=== PATIENT | female | born 1985 | race Caucasian/White ===

== ENCOUNTER 2017-02-06 15:10 | Emergency (ER) | payer OTHER ==
[~2017-02-06] VITALS: Ht 172.7 cm; Wt 89.4 kg
[~2017-02-06 15:10] MED LIST: ASPEC325 PO; PRENTAB26 PO
[2017-02-06 15:14] VITALS: TEMP 36.9; Ht 172.7 cm; Wt 89.4 kg
[2017-02-06 16:15] LABS: BASO % 0.7 %; BASO ABS # 0.05 K/uL (0-0.2); COMPLETE YES; EOS % 3.3 %; HEMATOCRIT 42.2 % (37-47); IG% 0.3 %; LYMPH % 27.5 %; LYMPH ABS # 2.08 K/uL (1.2-3.4); MEAN CELL VOLUME 87.7 fL (80-100); MEAN CORPUSCULAR HEMOGLOBIN 29.7 pg (25-34); MEAN CORPUSCULAR HGB CONC 33.9 g/dl (32-36); MEAN PLATELET VOLUME 10.4 fL (7.4-10.4); NEUT % 61.2 %; PLATELET COUNT 271 K/uL (130-400); RED BLOOD COUNT 4.81 M/uL (4.2-5.4); WHITE BLOOD COUNT 7.56 K/uL (4.8-10.8)
[2017-02-06] MEDS ORDERED: FLUT0.15 (16:17)
[2017-02-06] MEDS ORDERED: CETI10TA84 PO (16:17)
--- NOTE | 2017-02-06 16:23 | EMERGENCY ROOM VISIT NOTE ---
History First contact with patient: 15:26 Chief Complaint: FLANK PAIN Stated Complaint: SIDE PAIN, POSS. KIDNEYS History of Present Illness The patient is a 31 year old female who presents to the Emergency Room with complaints of Left sided flank pain x 4 days. Pain is constant 6/10 intensity. She took Azo overnight. She also reports as of last night, dysuria, w/o hematuria. This morning , she went to Acute care in [place], and has a UA and UPT which were normal per patient. She informed to go to hospital if pain did not subside. She also reports subjective fever, chills. She denies N/V or change in stool. Patient did have a UTI 4 mos ago but does report recurrent UTI. She denies hx of kidney stones or pyelonephritis. Patient reports past medical hx of ectopic . Review of Systems Pt denies headache, change in vision, chest pain, shortness of breath, nausea, vomiting, diarrhea, and melena. Past Medical/Surgical History Medical Problems: (1) Ectopic (2) No Known Active Medical Problems Social History Smoking Status: Never Smoker Current/Historical Medications Scheduled Cetirizine (Zyrtec), 10 MG PO DAILY Scheduled PRN Fluticasone Propionate (Nasal) (Flonase Allergy Relief), 1 SPRAY NA DAILY PRN for PRN Allergies Coded Allergies: Nifedipine (Unverified Allergy, Unknown, EDEMA/SWELLING/REDNESS, 02/06/17) Sulfa Antibiotics (Unverified Allergy, Unknown, ITCHY, 02/06/17) Phenyltoloxamine (Unverified Adverse Reaction, Mild, HIVES CHILD, ) Physical Exam Vital Signs Date Time Temp Pulse Resp B/P (MAP) Pulse Ox O2 Delivery O2 Flow Rate FiO2 02/06/17 16:44 67 16 115/74 98 02/06/17 15:14 36.9 76 20 116/69 97 Room Air Physical Exam GENERAL: alert, well appearing, well nourished, no distress, non-toxic EYE EXAM: normal conjunctiva, PERRL and EOM's grossly intact NECK: supple, no nuchal rigidity, no adenopathy, non-tender LUNGS: Clear to auscultation. Normal chest wall mechanics HEART: no murmurs, S1 normal and S2 normal ABDOMEN: abdomen soft, mild Left sided abdominal pain, normo-active bowel sounds, no masses, no rebound or guarding. BACK: Back is symmetrical on inspection and there is no deformity, no midline tenderness, + CVA tenderness Left sided UPPER EXTREMITIES: upper extremities are grossly normal. LOWER EXTREMITIES: No pitting edema. NEURO EXAM: Normal sensorium, cranial nerves II-XII gross intact, normal speech , no gross weakness of arms, no gross weakness of legs. Medical Decision & Procedures Laboratory Results 02/06/17 15:28 Red Blood Count 4.81, Mean Corpuscular Volume 87.7, Mean Corpuscular Hemoglobin 29.7, Mean Corpuscular Hemoglobin Concent 33.9, Mean Platelet Volume 10.4, Neutrophils (%) (Auto) 61.2, Lymphocytes (%) (Auto) 27.5, Monocytes (%) (Auto) 7.0, Eosinophils (%) (Auto) 3.3, Basophils (%) (Auto) 0.7, Neutrophils # (Auto) 4.63, Lymphocytes # (Auto) 2.08, Monocytes # (Auto) 0.53, Eosinophils # (Auto) 0.25, Basophils # (Auto) 0.05 02/06/17 15:28 Test 02/06/17 15:28 02/06/17 16:40 White Blood Count 7.56 K/uL (4.8-10.8) Red Blood Count 4.81 M/uL (4.2-5.4) Hemoglobin 14.3 g/dL (12.0-16.0) Hematocrit 42.2 % (37-47) Mean Corpuscular Volume 87.7 fL (80-100) Mean Corpuscular Hemoglobin 29.7 pg (25-34) Mean Corpuscular Hemoglobin Concent 33.9 g/dl (32-36) Platelet Count 271 K/uL (130-400) Mean Platelet Volume 10.4 fL (7.4-10.4) Neutrophils (%) (Auto) 61.2 % Lymphocytes (%) (Auto) 27.5 % Monocytes (%) (Auto) 7.0 % Eosinophils (%) (Auto) 3.3 % Basophils (%) (Auto) 0.7 % Neutrophils # (Auto) 4.63 K/uL (1.4-6.5) Lymphocytes # (Auto) 2.08 K/uL (1.2-3.4) Monocytes # (Auto) 0.53 K/uL (0.11-0.59) Eosinophils # (Auto) 0.25 K/uL (0-0.5) Basophils # (Auto) 0.05 K/uL (0-0.2) RDW Standard Deviation 42.9 fL (36.4-46.3) RDW Coefficient of Variation 13.2 % (11.5-14.5) Immature Granulocyte % (Auto) 0.3 % Immature Granulocyte # (Auto) 0.02 K/uL (0.00-0.02) Anion Gap 5.0 mmol/L (3-11) Est Creatinine Clear Calc Drug Dose 88.3 ml/min Estimated GFR () 78.6 Estimated GFR (Non- 67.8 BUN/Creatinine Ratio 13.5 (10-20) Calcium Level 8.9 mg/dl (8.5-10.1) Urine Color YELLOW Urine Appearance CLEAR (CLEAR) Urine pH 5.5 (4.5-7.5) Urine Specific [place] 1.026 (1.000-1.030) Urine Protein NEG (NEG) Urine Glucose (UA) NEG (NEG) Urine Ketones NEG (NEG) Urine Occult Blood NEG (NEG) Urine Nitrite NEG (NEG) Urine Bilirubin NEG (NEG) Urine Urobilinogen NEG (NEG) Urine Leukocyte Esterase NEG (NEG) Urine WBC (Auto) 1-5 /hpf (0-5) Urine RBC (Auto) 0-4 /hpf (0-4) Urine Hyaline Casts (Auto) 1-5 /lpf (0-5) Urine Epithelial Cells (Auto) 20-30 /lpf (0-5) Urine Bacteria (Auto) NEG (NEG) Urine Test NEG (NEG) Medical Decision 31 yo F p/w L-sided flank/back pain Differential diagnoses includes but is not limited to , muscle strain, facture, cauda equina, mass, and disc herniation Kidney stone . UA unremarkable CBC unremarkable UPT negative CT Abdomen 1. No urinary calculi or hydronephrosis. 2. No acute process within the abdomen or pelvis on unenhanced exam. Based on lab findings, Patient does not have UTI or pyelonephritis or evidence of Kidney stone on CT. Pain likely due to MSK pain which would be consistent with her positional worsening of pain. Results of labs and imaging were discussed with patient and patient understood, She agreed to follow up with Sina for primary care visit within 1 week for ongoing care following discharge. Impression Primary Impression: Left flank pain Departure Information Dispostion Home / Self-Care Condition GOOD Referrals No Doctor, Assigned (PCP) Patient Instructions My [facility] Resident Tracking Resident Involvement: Resident Care Provided Care Provided: Adult ED
--- NOTE | 2017-02-06 16:25 | DIAGNOSTIC IMAGING REPORT ---
CT OF THE ABDOMEN AND PELVIS WITHOUT CONTRAST, STONE PROTOCOL CLINICAL HISTORY: Left flank pain. COMPARISON STUDY: None. TECHNIQUE: Helical axial images of the abdomen and pelvis were obtained without IV or oral contrast according to renal stone protocol. FINDINGS: There are no renal, ureteral or bladder calculi. Pelvic calcifications reflect phleboliths. There is no hydronephrosis. Evaluation of the remainder of the abdomen and pelvis is suboptimal on this unenhanced exam. Unenhanced images of the liver, spleen, adrenal glands and pancreas are normal. There is no evidence for a bowel obstruction. The appendix is normal. There is no free fluid. There is no lymphadenopathy. A tampon is in place. The ovaries are not enlarged. Skeletal structures are unremarkable. IMPRESSION: 1. No urinary calculi or hydronephrosis. 2. No acute process within the abdomen or pelvis on unenhanced exam. Electronically signed by: Julio Curran M.D. 02/06/2017 4:24 PM Dictated Date/Time: 02/06/2017 4:17 PM
[2017-02-06 16:32] LABS: BUN/CREATININE RATIO 13.5 (10-20); CALCIUM 8.9 mg/dl (8.5-10.1); CREATININE 1.1 mg/dl (0.60-1.20); POTASSIUM 3.7 mmol/L (3.5-5.1)
--- NOTE | 2017-02-06 16:38 | EMERGENCY ROOM VISIT NOTE ---
History Report prepared by Juan: Ludwin Virk Under the Supervision of: Dr. Braxton Paz M.D. First contact with patient: 15:26 Chief Complaint: FLANK PAIN Stated Complaint: SIDE PAIN, POSS. KIDNEYS History of Present Illness The patient is a 31 year old female who presents to the Emergency Room with complaints of constant left flank pain beginning 4 days ago. Her pain is worsened with movement and is improved with laying down. She rates her pain as a 6/10 in severity. The patient also complains of burning with urination, subjective fever, and chills. She denies any vaginal complaints, coughing, nausea, vomiting, or diarrhea. She has a history of UTIs and states that her most recent one was about four months ago. The patient has a history of similar pain but has never been seen by a physician before for her symptoms. She states that her symptoms usually last for 2 months before resolving spontaneously. She has a history of an ectopic . The patient denies any recent falls, trauma, injury, or straining. Source of History: patient Onset: four days ago Position: other (left flank) Symptom Intensity: 6/10 Timing: constant Modifying Factors (Worsening): movement Modifying Factors (Relieving): other (laying down) Associated Symptoms: + fevers (subjective), + chills, + urinary symptoms ( burning), No cough, No nausea, No vomiting, No diarrhea Note: The patient denies any vaginal complaints. Review of Systems See HPI for pertinent positives & negatives. A total of 10 systems reviewed and were otherwise negative. Past Medical & Surgical Medical Problems: (1) Ectopic (2) No Known Active Medical Problems Family History No pertinent family history stated. Social History Smoking Status: Never Smoker Current/Historical Medications Scheduled Cetirizine (Zyrtec), 10 MG PO DAILY Scheduled PRN Fluticasone Propionate (Nasal) (Flonase Allergy Relief), 1 SPRAY NA DAILY PRN for PRN Allergies Coded Allergies: Nifedipine (Unverified Allergy, Unknown, EDEMA/SWELLING/REDNESS, 02/06/17) Sulfa Antibiotics (Unverified Allergy, Unknown, ITCHY, 02/06/17) Phenyltoloxamine (Unverified Adverse Reaction, Mild, HIVES CHILD, ) Physical Exam Vital Signs Date Time Temp Pulse Resp B/P (MAP) Pulse Ox O2 Delivery O2 Flow Rate FiO2 7/17/17 16:44 67 16 115/74 98 02/06/17 15:14 36.9 76 20 116/69 97 Room Air Physical Exam GENERAL: Patient is in no acute distress. HEENT: No acute trauma, normocephalic atraumatic, mucous membranes moist, no nasal congestion, no scleral icterus. NECK: No stridor, no adenopathy, no meningismus, trachea is midline. LUNGS: Clear to auscultation bilaterally, no wheeze, no rhonchi, breath sounds equal. HEART: Without murmurs gallops or rubs, regular rate and rhythm. ABDOMEN: Soft, mildly tender along the entire left side, bowel sounds positive, no hernias, no peritonitis. BACK: Mild left flank discomfort with percussion. Tender over the left lumbar musculature with palpation. Pain worsens with movement. EXTREMITIES: No cyanosis or edema, full range of motion of all the joints without pain or difficulty, no signs for acute trauma. NEUROLOGIC: Oriented x 3, no acute motor or sensory deficits, no focal weakness. SKIN: No rash, no jaundice, no diaphoresis. Medical Decision & Procedures ER Provider Diagnostic Interpretation: CT results as stated below per my review and radiologist interpretation: CT OF THE ABDOMEN AND PELVIS WITHOUT CONTRAST, STONE PROTOCOL FINDINGS: There are no renal, ureteral or bladder calculi. Pelvic calcifications reflect phleboliths. There is no hydronephrosis. Evaluation of the remainder of the abdomen and pelvis is suboptimal on this unenhanced exam. Unenhanced images of the liver, spleen, adrenal glands and pancreas are normal. There is no evidence for a bowel obstruction. The appendix is normal. There is no free fluid. There is no lymphadenopathy. A tampon is in place. The ovaries are not enlarged. Skeletal structures are unremarkable. IMPRESSION: 1. No urinary calculi or hydronephrosis. 2. No acute process within the abdomen or pelvis on unenhanced exam. Electronically signed by: Julio Curran M.D. Laboratory Results 02/06/17 15:28 Red Blood Count 4.81, Mean Corpuscular Volume 87.7, Mean Corpuscular Hemoglobin 29.7, Mean Corpuscular Hemoglobin Concent 33.9, Mean Platelet Volume 10.4, Neutrophils (%) (Auto) 61.2, Lymphocytes (%) (Auto) 27.5, Monocytes (%) (Auto) 7.0, Eosinophils (%) (Auto) 3.3, Basophils (%) (Auto) 0.7, Neutrophils # (Auto) 4.63, Lymphocytes # (Auto) 2.08, Monocytes # (Auto) 0.53, Eosinophils # (Auto) 0.25, Basophils # (Auto) 0.05 02/06/17 15:28 Test 02/06/17 15:28 02/06/17 16:40 White Blood Count 7.56 K/uL (4.8-10.8) Red Blood Count 4.81 M/uL (4.2-5.4) Hemoglobin 14.3 g/dL (12.0-16.0) Hematocrit 42.2 % (37-47) Mean Corpuscular Volume 87.7 fL (80-100) Mean Corpuscular Hemoglobin 29.7 pg (25-34) Mean Corpuscular Hemoglobin Concent 33.9 g/dl (32-36) Platelet Count 271 K/uL (130-400) Mean Platelet Volume 10.4 fL (7.4-10.4) Neutrophils (%) (Auto) 61.2 % Lymphocytes (%) (Auto) 27.5 % Monocytes (%) (Auto) 7.0 % Eosinophils (%) (Auto) 3.3 % Basophils (%) (Auto) 0.7 % Neutrophils # (Auto) 4.63 K/uL (1.4-6.5) Lymphocytes # (Auto) 2.08 K/uL (1.2-3.4) Monocytes # (Auto) 0.53 K/uL (0.11-0.59) Eosinophils # (Auto) 0.25 K/uL (0-0.5) Basophils # (Auto) 0.05 K/uL (0-0.2) RDW Standard Deviation 42.9 fL (36.4-46.3) RDW Coefficient of Variation 13.2 % (11.5-14.5) Immature Granulocyte % (Auto) 0.3 % Immature Granulocyte # (Auto) 0.02 K/uL (0.00-0.02) Anion Gap 5.0 mmol/L (3-11) Est Creatinine Clear Calc Drug Dose 88.3 ml/min Estimated GFR () 78.6 Estimated GFR (Non- 67.8 BUN/Creatinine Ratio 13.5 (10-20) Calcium Level 8.9 mg/dl (8.5-10.1) Urine Color YELLOW Urine Appearance CLEAR (CLEAR) Urine pH 5.5 (4.5-7.5) Urine Specific [place] 1.026 (1.000-1.030) Urine Protein NEG (NEG) Urine Glucose (UA) NEG (NEG) Urine Ketones NEG (NEG) Urine Occult Blood NEG (NEG) Urine Nitrite NEG (NEG) Urine Bilirubin NEG (NEG) Urine Urobilinogen NEG (NEG) Urine Leukocyte Esterase NEG (NEG) Urine WBC (Auto) 1-5 /hpf (0-5) Urine RBC (Auto) 0-4 /hpf (0-4) Urine Hyaline Casts (Auto) 1-5 /lpf (0-5) Urine Epithelial Cells (Auto) 20-30 /lpf (0-5) Urine Bacteria (Auto) NEG (NEG) Urine Test NEG (NEG) Laboratory results reviewed by me. ED Course 1530: The patient was evaluated in room A4B. A complete history and physical exam was performed. 1740: Reevaluated the patient. Discussed results and discharge instructions: she verbalized understanding and agreement. The patient is ready for discharge. Medical Decision The patient is a 31 year old female who presents to the ED with complaints of left flank pain. Differential diagnoses considered include musculoskeletal pain , renal colic, UTI, electrolyte imbalance, anemia, and ovarian cyst. There is no leukocytosis or concerning anemia. No significant electrolyte abnormality or kidney failure. testing is negative. Urinalysis does not show infection or significant hematuria. Abdominal and pelvis CT does not show evidence for hydronephrosis or bowel obstruction. There was no large ovarian cyst. On exam, the patient did seem to have more pain with palpation of the left lumbar musculature and her pain worsened with movement. The patient is not toxic or febrile. She did not want anything for pain. She has had similar pain in the past at times. Workup here does not show any evidence for a ureteral stone or for pyelonephritis. Her pain is very likely musculoskeletal. She is being discharged home with conservative care and outpatient follow-up. If worsening, she can return. Impression Primary Impression: Left flank pain Scribe Attestation The scribe's documentation has been prepared under my direction and personally reviewed by me in its entirety. I confirm that the note above accurately reflects all work, treatment, procedures, and medical decision making performed by me. Departure Information Dispostion Home / Self-Care Referrals No Doctor, Assigned (PCP) Forms HOME CARE DOCUMENTATION FORM, IMPORTANT VISIT INFORMATION Patient Instructions My [facility] Additional Instructions -F/u with PCP within 1 wk -Take Ibuprofen as needed for back pain -Ice and/or Heat to affected area would be appropriate
[2017-02-06 17:15] LABS: URINE APPEARANCE CLEAR (CLEAR); URINE BILIRUBIN NEG (NEG); URINE COLOR YELLOW; URINE EPITHELIAL CELL AUTO 20-30 /lpf (0-5); URINE NITRITE NEG (NEG); URINE PH 5.5 (4.5-7.5); URINE SPECIFIC GRAVITY 1.026 (1.000-1.030); UROBILINOGEN NEG (NEG)
[2017-02-06 17:29] LABS: MANUAL MICROSCOPIC REQUIRED? NO; REVIEW REQ? NO
[2017-02-06 17:47] VITALS: BP 109/53; PULSE 76; O2SAT 97
== END 2017-02-06 17:49 | disposition home or self-care (01) ==
LOC: C.EDB 15:13 → C.EDA 17:49
DX: R10.9 Unspecified abdominal pain (principal); Z87.440 Personal history of urinary (tract) infections

== ENCOUNTER 2017-10-16 10:18 | Emergency (ER) | payer OTHER ==
[~2017-10-16] VITALS: Ht 172.7 cm; Wt 95.3 kg
[~2017-10-16 10:18] MED LIST changes: -ASPEC325 PO; +CETI10TA84 PO; +FLUT0.15; -PRENTAB26 PO
[2017-10-16 10:27] VITALS: TEMP 36.8; Ht 172.7 cm; Wt 95.3 kg
[2017-10-16 11:22] LABS: BASO % 0.3 %; BASO ABS # 0.02 K/uL (0-0.2); EOS % 5.1 %; HEMOGLOBIN 13.8 g/dL (12.0-16.0); IG# 0.02 K/uL (0.00-0.02); LYMPH % 25.8 %; LYMPH ABS # 2.01 K/uL (1.2-3.4); MEAN CELL VOLUME 87.2 fL (80-100); MEAN CORPUSCULAR HEMOGLOBIN 29.4 pg (25-34); MEAN CORPUSCULAR HGB CONC 33.7 g/dl (32-36); MEAN PLATELET VOLUME 10.2 fL (7.4-10.4); MONO % 5.8 %; MONO ABS # 0.45 K/uL (0.11-0.59); NEUT % 62.7 %; PLATELET COUNT 233 K/uL (130-400); RED CELL DISTRIBUTION WIDTH CV 13.9 % (11.5-14.5); RED CELL DISTRIBUTION WIDTH SD 44.2 fL (36.4-46.3)
[2017-10-16 11:55] LABS: ALBUMIN 3.6 gm/dl (3.4-5.0); CALCIUM 8.7 mg/dl (8.5-10.1); CREATININE 0.88 mg/dl (0.60-1.20); POTASSIUM 4.1 mmol/L (3.5-5.1)
[2017-10-16 11:59] LABS: TOTAL PROTEIN 7.2 gm/dl (6.4-8.2)
[2017-10-16] MEDS ORDERED: SODIUM CHLORIDE 0.9% 1000ML 1,000 ML IV STA (13:02)
[2017-10-16] MEDS ORDERED: KETOROLAC TROMETHAMINE 30 MG/ML VIAL IV STA (13:02)
--- NOTE | 2017-10-16 15:15 | DIAGNOSTIC IMAGING REPORT ---
PELVIC ULTRASOUND CLINICAL HISTORY: RIGHT PELVIC PAIN, PRESENTLY MENSTRUATING. COMPARISON STUDY: CT of the abdomen and pelvis February 06, 2017. TECHNIQUE: Transabdominal and transvaginal sonography of the pelvis was performed. FINDINGS: Uterus measures 8.1 x 4.5 x 5.5 cm. Endometrium measures 4 mm in thickness. There is trace fluid within the pelvis. The right ovary measures 2.8 x 1.6 x 2.6 cm and the left ovary measures 3.2 x 2.2 x 2.9 cm. There is color flow within each ovary. IMPRESSION: 1. Unremarkable pelvic ultrasound. 2. Minimal fluid within the pelvis which is likely physiologic. Electronically signed by: Julio Curran M.D. 10/16/2017 3:14 PM Dictated Date/Time: 10/16/2017 3:12 PM
[2017-10-16] MEDS ORDERED: OPTIRAY 320 IV PRN (15:30)
--- NOTE | 2017-10-16 16:07 | DIAGNOSTIC IMAGING REPORT ---
CT ABD/PELVIS IV CONTRAST ONLY CLINICAL HISTORY: Right lower quadrant and right flank pain. COMPARISON STUDY: 02/06/2017 TECHNIQUE: Following the IV administration of 94 mL of Optiray-320, CT scan of the abdomen and pelvis was performed from the lung bases to the proximal femurs. Images are reviewed in the axial, sagittal, and coronal planes. IV contrast was administered without complication. A dose lowering technique was utilized adhering to the principles of ALARA. CT DOSE: 801.31 mGycm FINDINGS: Lower chest: The heart is normal in size and configuration, without pericardial effusion. The lung bases and pleural spaces are clear. Liver: The contrast-enhanced liver is normal in size, contour, and attenuation. There is no intrahepatic biliary ductal dilatation. The hepatic veins and portal veins are patent. Gallbladder: Unremarkable. Spleen: Normal in size and attenuation. Pancreas: Unremarkable. Adrenal glands: Unremarkable. Kidneys: There is symmetric renal cortical enhancement. The kidneys are normal in size without hydronephrosis. Bowel: There are no transition zones indicate bowel obstruction. There is no acute diverticulitis. The appendix is difficult to visualize, but there are no findings to indicate acute appendicitis. Peritoneum: There is no free air. There is trace free fluid which is felt to be physiologic. Vasculature: The abdominal aorta is normal in course and caliber. Adenopathy: None. Pelvic viscera: The bladder, and pelvic viscera are unremarkable. A tampon is visualized. Skeletal structures: No destructive osseous lesions are seen. IMPRESSION: 1. No acute intra-abdominal or pelvic findings. 2. No evidence of bowel obstruction. No evidence of free air 3. No evidence of diverticulitis. No evidence of acute appendicitis. 4. No evidence of hydronephrosis. Electronically signed by: Clemente Al M.D. 10/16/2017 4:05 PM Dictated Date/Time: 10/16/2017 4:00 PM
--- NOTE | 2017-10-16 16:25 | EMERGENCY ROOM VISIT NOTE ---
History First contact with patient: 10:37 Chief Complaint: ABDOMINAL PAIN Stated Complaint: SEVERE PAIN IN ABDOMEN AND PLANK Nursing Triage Summary: Pt states, "I don't know if I know if it's a cyst. I am in tears. I have pain in my lower abd pain, but it's worse on the right side. It shoots. It feels like someone is sticking there hand inside and trying to rip out my organs. It is off/on and is a jolt of pain." Pain radiates to back. Nausea. Denies urinary s/sx. Currently has menstrual cycle. History of Present Illness Patient is a 31-year-old white female, AB 3 who presents emergency department for evaluation of lower pelvic pain that started yesterday. Patient reports that she got her menses yesterday, it was on time as she expected it. Flow was normal for the patient. She had what she suspected were menstrual cramps yesterday, low in the suprapubic region. They progressively worsened throughout the day, they were unalleviated with ibuprofen and Midol. She states that her pain increased last evening, kept her from sleeping overnight. The pain is now more in the right lower/mid quadrant radiating into the back. She is nauseous and queasy but has not vomited. She has a gynecologic history significant for cervical dysplasia and a right ectopic for which she believes they took the right fallopian tube. She denies any history of ovarian cysts. She has not had any urinary symptoms. Bowel movements have been a bit irregular since she has been traveling (she returned from a trip to [facility] less than 24 hours ago), but she denies any diarrhea. She presently rates her pain an 8/10. Review of Systems Review of systems as per HPI. All other systems reviewed were negative. 10 systems reviewed. Past Medical/Surgical History Medical Problems: (1) Asthma (2) Ectopic (3) Left flank pain (4) No Known Active Medical Problems (5) Skin problem (6) Stomach problems Surgical Problems: (1) History of dilatation and curettage (2) History of unilateral salpingectomy Electronic medical records are reviewed and summarized as above/below. See Problem List. Social History Smoking Status: Former Smoker Marital Status: in relationship Housing Status: lives with family Occupation Status: employed Current/Historical Medications Scheduled Cetirizine (Zyrtec), 10 MG PO DAILY Scheduled PRN Fluticasone Propionate (Nasal) (Flonase Allergy Relief), 1 SPRAY NA DAILY PRN for PRN Physical Exam Vital Signs Date Time Temp Pulse Resp B/P (MAP) Pulse Ox O2 Delivery O2 Flow Rate FiO2 10/16/17 15:15 20 116/73 10/16/17 13:21 55 17 120/64 99 Room Air 10/16/17 10:27 36.8 72 18 134/84 96 Room Air Physical Exam CONSTITUTIONAL: Patient is a well-appearing 31-year-old female who is awake and alert and in no acute distress. EYES: Pupils equal, round, reactive to light and accommodation. EOMs intact without nystagmus. Sclera are anicteric. ENT: Tympanic membranes intact, with normal landmarks. External canals are clear. Oral and nasopharynx are clear. Mucous membranes are moist, no lesions , tongue and gums appear normal. NECK: Supple without lymphadenopathy. No thyromegaly. No meningeal signs. Full active range of motion without discomfort. CARDIOVASCULAR: Regular rate and rhythm, with normal S1 and S2, no murmur or gallop or rub is heard. No carotid bruits auscultated. No JVD. Peripheral pulses easy to palpable. RESPIRATORY: Breath sounds equal and clear to auscultation without wheezes, rales, or rhonchi heard. Full and equal chest expansion without accessory muscle use or retractions. GI: Bowel sounds are present. Abdomen is soft, nondistended, mildly tender in the suprapubic, right lower quadrant and right mid abdomen. No organomegaly. No pulsatile masses. No guarding or rebound. There is no pain in the right upper quadrant, negative Teresa sign. MUSCULOSKELETAL: Full range of motion of extremities x 4 with good strength. No cyanosis, edema, joint tenderness or swelling. No deformity. INTEGUMENTARY: No lesions or rash, normal skin turgor. NEUROLOGICAL: Alert, oriented, and cooperative. Cranial nerves, sensation and strength grossly intact. Pupils round, equal, and react to light, EOMs are full. LYMPH: No lymphadenopathy. Medical Decision & Procedures ER Provider Diagnostic Interpretation: PELVIC ULTRASOUND CLINICAL HISTORY: RIGHT PELVIC PAIN, PRESENTLY MENSTRUATING. COMPARISON STUDY: CT of the abdomen and pelvis February 06, 2017. TECHNIQUE: Transabdominal and transvaginal sonography of the pelvis was performed. FINDINGS: Uterus measures 8.1 x 4.5 x 5.5 cm. Endometrium measures 4 mm in thickness. There is trace fluid within the pelvis. The right ovary measures 2.8 x 1.6 x 2.6 cm and the left ovary measures 3.2 x 2.2 x 2.9 cm. There is color flow within each ovary. IMPRESSION: 1. Unremarkable pelvic ultrasound. 2. Minimal fluid within the pelvis which is likely physiologic. ] CT ABD/PELVIS IV CONTRAST ONLY CLINICAL HISTORY: Right lower quadrant and right flank pain. COMPARISON STUDY: 02/06/2017 TECHNIQUE: Following the IV administration of 94 mL of Optiray-320, CT scan of the abdomen and pelvis was performed from the lung bases to the proximal femurs. Images are reviewed in the axial, sagittal, and coronal planes. IV contrast was administered without complication. A dose lowering technique was utilized adhering to the principles of ALARA. CT DOSE: 801.31 mGycm FINDINGS: Lower chest: The heart is normal in size and configuration, without pericardial effusion. The lung bases and pleural spaces are clear. Liver: The contrast-enhanced liver is normal in size, contour, and attenuation. There is no intrahepatic biliary ductal dilatation. The hepatic veins and portal veins are patent. Gallbladder: Unremarkable. Spleen: Normal in size and attenuation. Pancreas: Unremarkable. Adrenal glands: Unremarkable. Kidneys: There is symmetric renal cortical enhancement. The kidneys are normal in size without hydronephrosis. Bowel: There are no transition zones indicate bowel obstruction. There is no acute diverticulitis. The appendix is difficult to visualize, but there are no findings to indicate acute appendicitis. Peritoneum: There is no free air. There is trace free fluid which is felt to be physiologic. Vasculature: The abdominal aorta is normal in course and caliber. Adenopathy: None. Pelvic viscera: The bladder, and pelvic viscera are unremarkable. A tampon is visualized. Skeletal structures: No destructive osseous lesions are seen. IMPRESSION: 1. No acute intra-abdominal or pelvic findings. 2. No evidence of bowel obstruction. No evidence of free air 3. No evidence of diverticulitis. No evidence of acute appendicitis. 4. No evidence of hydronephrosis. Laboratory Results 10/16/17 11:10 Red Blood Count 4.70, Mean Corpuscular Volume 87.2, Mean Corpuscular Hemoglobin 29.4, Mean Corpuscular Hemoglobin Concent 33.7, Mean Platelet Volume 10.2, Neutrophils (%) (Auto) 62.7, Lymphocytes (%) (Auto) 25.8, Monocytes (%) (Auto) 5.8, Eosinophils (%) (Auto) 5.1, Basophils (%) (Auto) 0.3, Neutrophils # (Auto) 4.90, Lymphocytes # (Auto) 2.01, Monocytes # (Auto) 0.45, Eosinophils # (Auto) 0.40, Basophils # (Auto) 0.02 10/16/17 11:10 Test 10/16/17 11:10 10/16/17 12:30 White Blood Count 7.80 K/uL (4.8-10.8) Red Blood Count 4.70 M/uL (4.2-5.4) Hemoglobin 13.8 g/dL (12.0-16.0) Hematocrit 41.0 % (37-47) Mean Corpuscular Volume 87.2 fL (80-100) Mean Corpuscular Hemoglobin 29.4 pg (25-34) Mean Corpuscular Hemoglobin Concent 33.7 g/dl (32-36) Platelet Count 233 K/uL (130-400) Mean Platelet Volume 10.2 fL (7.4-10.4) Neutrophils (%) (Auto) 62.7 % Lymphocytes (%) (Auto) 25.8 % Monocytes (%) (Auto) 5.8 % Eosinophils (%) (Auto) 5.1 % Basophils (%) (Auto) 0.3 % Neutrophils # (Auto) 4.90 K/uL (1.4-6.5) Lymphocytes # (Auto) 2.01 K/uL (1.2-3.4) Monocytes # (Auto) 0.45 K/uL (0.11-0.59) Eosinophils # (Auto) 0.40 K/uL (0-0.5) Basophils # (Auto) 0.02 K/uL (0-0.2) RDW Standard Deviation 44.2 fL (36.4-46.3) RDW Coefficient of Variation 13.9 % (11.5-14.5) Immature Granulocyte % (Auto) 0.3 % Immature Granulocyte # (Auto) 0.02 K/uL (0.00-0.02) Anion Gap 6.0 mmol/L (3-11) Est Creatinine Clear Calc Drug Dose 113.8 ml/min Estimated GFR () 102.9 Estimated GFR (Non- 88.8 BUN/Creatinine Ratio 15.4 (10-20) Calcium Level 8.7 mg/dl (8.5-10.1) Total Bilirubin 0.5 mg/dl (0.2-1) Aspartate Amino Transf (AST/SGOT) 17 U/L (15-37) Alanine Aminotransferase (ALT/SGPT) 31 U/L (12-78) Alkaline Phosphatase 56 U/L (45-117) Total Protein 7.2 gm/dl (6.4-8.2) Albumin 3.6 gm/dl (3.4-5.0) Globulin 3.6 gm/dl (2.5-4.0) Albumin/Globulin Ratio 1.0 (0.9-2) Lipase 100 U/L (73-393) Human Chorionic Gonadotropin, Qual NEG (NEG) Urine Color YELLOW Urine Appearance CLEAR (CLEAR) Urine pH 6.5 (4.5-7.5) Urine Specific Lilly 1.025 (1.000-1.030) Urine Protein NEG (NEG) Urine Glucose (UA) NEG (NEG) Urine Ketones NEG (NEG) Urine Occult Blood TRACE (NEG) Urine Nitrite NEG (NEG) Urine Bilirubin NEG (NEG) Urine Urobilinogen NEG (NEG) Urine Leukocyte Esterase NEG (NEG) Urine WBC (Auto) 1-5 /hpf (0-5) Urine RBC (Auto) 0-4 /hpf (0-4) Urine Hyaline Casts (Auto) 1-5 /lpf (0-5) Urine Epithelial Cells (Auto) >30 /lpf (0-5) Urine Bacteria (Auto) NEG (NEG) Medications Administered Medications (Trade) Dose Ordered Sig/Leah Route Start Time Stop Time Status Last Admin Dose Admin Sodium Chloride 1,000 ml @ 999 mls/hr Q1H1M STAT IV 10/16/17 13:02 10/16/17 14:02 DC 10/16/17 13:06 999 MLS/HR Ketorolac Tromethamine (Toradol Inj) 30 mg NOW STAT IV 10/16/17 13:02 10/16/17 13:03 DC 10/16/17 13:22 30 MG ED Course The patient was seen and assessed as above. Old records were reviewed. IV lock was initiated and laboratory studies were collected. She was hydrated with normal saline solution and medicated with Toradol 30 mg IV. CBC with differential, CMP, lipase, urinalysis and urgency test were performed. Her laboratory workup was essentially benign. White count is normal. H&H is within normal limits. Electrolytes, renal functions, LFTs and lipase are all within normal limits. Her serum hCG was negative, and urinalysis noted trace occult blood, and greater than 30 epithelial cells, likely indicative of contamination from her menses and was otherwise completely clear. Pelvic ultrasound was performed initially, to evaluate for possible gynecologic etiology of her pain, and was unremarkable. There is no evidence for uterine or adnexal abnormalities. The patient was reassessed, and reported that she had significant pain with the ultrasound probe in the right lower quadrant. She was reexamined and still had some right mid abdomen/right lower quadrant pain, therefore CT scan of the abdomen and pelvis with IV contrast was pursued. CT did not demonstrate any acute intra-abdominal or pelvic findings, no evidence for bowel obstruction, free air, hydro-or diverticulitis. There is no findings that indicated acute appendicitis. All laboratory and diagnostic imaging studies were reviewed with the patient. Conservative care measures were advised. Given the right lower quadrant pain, she was encouraged to be reexamined in 24 hours if her pain is persistent, should she develop any fevers or vomiting. Differential diagnoses entertained included UTI, pyelonephritis, renal colic, ovarian cyst, ovarian torsion, , ectopic , PID, tubo-ovarian abscess, appendicitis, biliary colic, infectious versus inflammatory colitis/enteritis, food borne illness, musculoskeletal pain, shingles, among others. The patient was encouraged to return to the emergency department or follow-up with her PCP for any worsening symptoms. Discharged home in good condition. Medical Decision See ED Course. Medication Reconcilliation Current Medication List: was personally reviewed by me Blood Pressure Screening Patient's blood pressure: Normal blood pressure Blood pressure disposition: Did not require urgent referral Impression Primary Impression: Right lower quadrant abdominal pain Departure Information Referrals Maya Mendoza D.O. (PCP) Patient Instructions My [facility] Additional Instructions Ibuprofen(Motrin, Advil) may be used for fever or pain. Use 600mg every six hours as needed. Take with food. Avoid using more than 2400mg in a 24 hour period. Do not use 2400mg per day for more than three consecutive days without physician direction. Prolonged inappropriate use can lead to stomach upset or ulcers. This is available over the counter and typically comes in 200mg tablets. (AND/OR) Acetaminophen(Tylenol) may be used for fever or pain. Use 1000mg every eight hours as needed. Avoid using more than 3000mg in a 24 hour period. This is available over the counter. Rest and drink plenty of fluids as tolerated. Slow sips of water or sports drinks are recommended instead of large amounts all at once. Continue current medications. Once your stomach is settled start with a clear liquid diet (jello, soup broth, etc.) and then advance as tolerated. You should avoid full, heavy meals for about 24 hrs from the time your symptoms resolved. Return to the ER immediately for worsening or persistent abdominal pain, vomiting, fevers, chest pains, difficulty breathing, black or bloody stools, worsening of your condition, or as needed. Follow up with your primary physician in 1-2 days for a recheck of your current condition.
[2017-10-16 16:52] VITALS: BP 122/77; PULSE 54; O2SAT 100
== END 2017-10-16 16:57 | disposition home or self-care (01) ==
LOC: C.EDB 10:21 → C.EDC 16:57
DX: R10.31 Right lower quadrant pain (principal); J45.909 Unspecified asthma, uncomplicated; Z90.79 Acquired absence of other genital organ(s); Z87.891 Personal history of nicotine dependence